=== PATIENT | male | born 2000 | race Caucasian/White ===

== ENCOUNTER 2020-08-28 14:53 | Emergency (ER) | payer MEDICAID ==
[~2020-08-28] VITALS: Ht 182.9 cm; Wt 127.0 kg
[2020-08-28 15:05] VITALS: BP_SYST 180
--- NOTE | 2020-08-28 15:05 | NUR ---
Patient to ER bed 5 to gown for evaluation. Side rails up.
--- NOTE | 2020-08-28 15:10 | NUR ---
Pt walked in to ER with c/o pain and drainage to right hand. Pt reports getting a tattoo last week and it isn't healing. V/S stable, pt is afebrile. Currently resting in bed, will continue to monitor.
--- NOTE | 2020-08-28 15:20 | NUR ---
ER Dr. Moreno at bedside examining patient.
--- NOTE | 2020-08-28 15:30 | NUR ---
Patient given written and verbal discharge instructions and verbalizes understanding. ER MD discussed with patient the results and treatment provided. Patient in stable condition. ID arm band removed. Rx of Bactrim and Naprosyn given. Patient educated on pain management and to follow up with PMD. Pain Scale 3. Opportunity for questions provided and answered. Medication side effect fact sheet provided.
[2020-08-28 15:33] VITALS: BP_SYST 160
== END 2020-08-28 15:30 | disposition home or self-care (01) ==
LOC: SED 14:53
DX: T81.49XA Infection following a procedure, other surgical site, initial encounter (principal); X58.XXXA Exposure to other specified factors, initial encounter; Y93.89 Activity, other specified; Y92.89 Other specified places as the place of occurrence of the external cause; Y99.8 Other external cause status
CPT/HCPCS: 99283

== ENCOUNTER 2023-01-11 00:57 | Emergency (ER) | payer MEDICAID ==
[~2023-01-11] VITALS: Ht 180.3 cm; Wt 90.7 kg
[2023-01-11 01:27] VITALS: BP_SYST 126
[2023-01-11] MEDS ORDERED: DEXAMETHASONE SOD PHOSPHATE 10 MG/ML VIAL PO ONE (01:30)
[2023-01-11] MEDS ORDERED: GUAI-723 PO (01:33)
[2023-01-11] MEDS ORDERED: BENZ1LOZ73 PO (01:33)
--- NOTE | 2023-01-11 01:33 | NUR ---
Patient to hallway to gown for evaluation. Side rails up.
--- NOTE | 2023-01-11 01:33 | NUR ---
ER at bedside examining patient.
--- NOTE | 2023-01-11 01:36 | NUR ---
COVID AND FLU SAMPLE COLLECTED AND SENT TO LAB
--- NOTE | 2023-01-11 01:47 | NUR ---
Pt C/O flu like systoms COVID and Flu specimens sent to lab AOX4 VSS Able to make needs known Patient given written and verbal discharge instructions and verbalizes understanding. ER MD discussed with patient the results and treatment provided. Patient in stable condition. ID arm band removed. IV catheter removed intact and dressing applied, no active bleeding. Patient educated on pain management and to follow up with PMD. Opportunity for questions provided and answered. Medication side effect fact sheet provided.
== END 2023-01-11 01:57 | disposition home or self-care (01) ==
LOC: SED 00:57
DX: B34.9 Viral infection, unspecified (principal); R07.0 Pain in throat; R05.9 Cough, unspecified; R09.81 Nasal congestion; Z79.899 Other long term (current) drug therapy; Z20.822 Contact with and (suspected) exposure to COVID-19
CPT/HCPCS: 99283; 87426; 36415; 87804 ×2; J1100